=== PATIENT | male | born 1965 | race Two or more races ===

== ENCOUNTER 2020-03-23 07:49 | Emergency (ER) | payer BC, OTHER ==
[~2020-03-23] VITALS: Ht 185.4 cm; Wt 99.8 kg
[2020-03-23 07:55] VITALS: BP 145/80
[2020-03-23] MEDS ORDERED: methylPREDNISolone SOD SUCC 125 MG/2 ML VL IM ONE (09:00)
[2020-03-23] MEDS ORDERED: ACETAMINOPHEN 500 MG TAB PO ONE (09:00)
== END 2020-03-23 10:40 | disposition home or self-care (01) ==
LOC: ER 07:49
DX: S39.012A Strain of muscle, fascia and tendon of lower back, initial encounter (principal); X58.XXXA Exposure to other specified factors, initial encounter; Y93.89 Activity, other specified; Y92.89 Other specified places as the place of occurrence of the external cause; Y99.8 Other external cause status
CPT/HCPCS: 72100; 96372; 99283; J2930

== ENCOUNTER 2023-10-31 13:29 | Inpatient (IN) | payer BC, OTHER ==
[~2023-10-31] VITALS: Ht 182.9 cm; Wt 114.6 kg
[2023-10-31] MEDS: ASPirin 81 mg TAB PO ONE (14:00)
[2023-10-31] MEDS: MORPHINE SULFATE 4 MG/ML SYR/VIAL IV ONE (14:00)
[2023-10-31] MEDS: ONDANSETRON HCL 4 MG/2 ML VIAL IV ONE (14:00)
[2023-10-31 14:15] VITALS: PULSE 64
[2023-10-31 14:16] LABS: Basophils # (auto) 0 10 ^3/uL (0-0.2); Basophils % (auto) 0.3 % (0.0-2.0); Eosinophils # (auto) 0.1 10 ^3/uL (0-0.8); Eosinophils % (auto) 3.1 % (0.0-7.0); Hematocrit 38.7 % (41.0-53.0); Lymphocytes # (auto) 1.8 10 ^3/uL (0.4-5.4); Lymphocytes % (auto) 37.3 % (10.0-50.0); Mean Corpuscular Hemoglobin 29.1 pg (28.0-32.0); Mean Corpuscular Hgb Conc. 33.6 g/dL (32.0-36.0); Mean Corpuscular Volume 86.8 fL (80.0-100.0); Monocytes # (auto) 0.6 10 ^3/uL (0-1.3); Monocytes % (auto) 12.2 % (0.0-12.0); Neutrophils # (auto) 2.3 10 ^3/uL (1.6-8.6); Neutrophils % (auto) 47.1 % (37.0-80.0); Nucleated Red Blood Cells % 0.2 %; Platelet Count (auto) 209 10^3/uL (140-450); Red Blood Cells 4.46 10^6/uL (4.5-5.90); Red Cell Distribution Width 13.9 % (11.8-14.3); White Blood Cell 4.9 10^3/uL (4.4-10.8)
[2023-10-31 14:19] LABS: Alanine Aminotransferase 23 U/L (7-40); Albumin 4.6 g/dL (3.2-4.8); Alkaline Phosphatase 49 U/L (46-116); Anion Gap 8 (5-15); Aspartate Aminotransferase 14 U/L (13-40); BUN/Creatinine Ratio 12.6 (10.0-20.0); Blood Urea Nitrogen 13 mg/dL (9-23); Calcium 10.4 mg/dL (8.7-10.4); Carbon Dioxide 27 mmol/L (20-30); Chloride 105 mmol/L (98-107); Glucose 102 mg/dL (74-106); Magnesium 1.7 mg/dL (1.6-2.6); Potassium 4.3 mmol/L (3.5-5.1); Sodium 140 mmol/L (136-145)
[2023-10-31 14:20] LABS: Bilirubin, Total 0.4 mg/dL (0.2-1.0); Total Protein 7.3 g/dL (5.7-8.2)
[2023-10-31 14:32] LABS: INR 1.05 (0.9-1.15); Partial Thromboplastin Time 25.7 SEC (24.5-34.5); Prothrombin Time 11.1 sec (9.3-11.8)
[2023-10-31] MEDS ORDERED: ACETAMINOPHEN 325 MG TAB PO PRN (15:00)
[2023-10-31] MEDS ORDERED: NITROGLYCERIN 0.4 MG SL TAB SL PRN (15:00)
[2023-10-31] MEDS ORDERED: MORPHINE SULFATE INJ 2 MG/ml SYRG IV PRN (15:00)
[2023-10-31] MEDS ORDERED: DOCUSATE SOD 100 MG CAP PO PRN (15:00)
[2023-10-31] MEDS ORDERED: ONDANSETRON HCL 4 MG/2 ML VIAL IV PRN (15:00)
[2023-10-31 19:40] VITALS: PULSE 70; RESP 14; O2SAT 99
[2023-10-31] MEDS: SODIUM CHLOR 0.9% PF (SALINE LOCK) 10ML VIAL/SYR IV SCH (22:28)
[2023-10-31] MEDS: ATORVASTATIN 20 MG TAB PO SCH (22:30)
[2023-10-31] MEDS: NALOXONE HCL 1MG/ML 2ML SYRINGE IV ONE (22:49)
[2023-11-01] VITALS (8 sets, daily range): BP systolic 108–117; BP diastolic 67–73; PULSE 56–68; RESP 17–18; TEMP 97.5–98.1; O2SAT 96–100
[2023-11-01] MEDS ORDERED: GABA-1250 PO (04:58)
[2023-11-01] MEDS: MORPHINE SULFATE INJ 2 MG/ml SYRG IV PRN (05:23)
[2023-11-01 06:56] LABS: Basophils # (auto) 0 10 ^3/uL (0-0.2); Basophils % (auto) 0.4 % (0.0-2.0); Eosinophils # (auto) 0.1 10 ^3/uL (0-0.8); Eosinophils % (auto) 2.8 % (0.0-7.0); Hematocrit 38.5 % (41.0-53.0); Hemoglobin 13.1 g/dL (13.5-17.5); Lymphocytes # (auto) 1.5 10 ^3/uL (0.4-5.4); Lymphocytes % (auto) 33.9 % (10.0-50.0); Mean Corpuscular Hemoglobin 29.8 pg (28.0-32.0); Mean Corpuscular Volume 87.7 fL (80.0-100.0); Monocytes # (auto) 0.6 10 ^3/uL (0-1.3); Monocytes % (auto) 13.1 % (0.0-12.0); Neutrophils # (auto) 2.3 10 ^3/uL (1.6-8.6); Neutrophils % (auto) 49.8 % (37.0-80.0); Nucleated Red Blood Cells % 0.3 %; Platelet Count (auto) 206 10^3/uL (140-450); Red Cell Distribution Width 14.1 % (11.8-14.3); White Blood Cell 4.5 10^3/uL (4.4-10.8)
[2023-11-01 07:20] LABS: Alanine Aminotransferase 19 U/L (7-40); Albumin 4.1 g/dL (3.2-4.8); Alkaline Phosphatase 44 U/L (46-116); Anion Gap 5 (5-15); Aspartate Aminotransferase 13 U/L (13-40); BUN/Creatinine Ratio 13.3 (10.0-20.0); Bilirubin, Total 0.4 mg/dL (0.2-1.0); Blood Urea Nitrogen 14 mg/dL (9-23); Calcium 9.3 mg/dL (8.7-10.4); Carbon Dioxide 27 mmol/L (20-30); Chloride 108 mmol/L (98-107); Glucose 109 mg/dL (74-106); Potassium 4.2 mmol/L (3.5-5.1); Sodium 140 mmol/L (136-145); Total Protein 6.9 g/dL (5.7-8.2)
[2023-11-01] MEDS: HYDROcodone-ACET 5/325MG TAB PO PRN (10:02)
[2023-11-01] MEDS: ASPirin 81 mg TAB PO SCH (10:02)
[2023-11-01 15:05] LABS: Triglycerides 198 mg/dL (< 150)
[2023-11-01 15:06] LABS: LDL Cholesterol 191 mg/dL (< 100)
[2023-11-01 15:07] LABS: HDL Cholesterol 50 mg/dL (40-59)
[2023-11-01 15:08] LABS: Cholesterol 267 mg/dL (< 200)
[2023-11-01] MEDS: ATORVASTATIN 20 MG TAB PO SCH (21:52)
[2023-11-02] VITALS (11 sets, daily range): BP systolic 105–131; BP diastolic 59–97; PULSE 57–79; RESP 12–20; TEMP 97.8–98.1; O2SAT 94–99
[2023-11-02 06:56] LABS: Basophils # (auto) 0 10 ^3/uL (0-0.2); Basophils % (auto) 0.4 % (0.0-2.0); Eosinophils # (auto) 0.1 10 ^3/uL (0-0.8); Hematocrit 40.5 % (41.0-53.0); Hemoglobin 13.7 g/dL (13.5-17.5); Lymphocytes # (auto) 1.8 10 ^3/uL (0.4-5.4); Lymphocytes % (auto) 39.2 % (10.0-50.0); Mean Corpuscular Hemoglobin 29.5 pg (28.0-32.0); Mean Corpuscular Hgb Conc. 33.9 g/dL (32.0-36.0); Mean Corpuscular Volume 86.9 fL (80.0-100.0); Monocytes # (auto) 0.6 10 ^3/uL (0-1.3); Monocytes % (auto) 12.7 % (0.0-12.0); Neutrophils % (auto) 44.7 % (37.0-80.0); Nucleated Red Blood Cells % 0.1 %; Platelet Count (auto) 211 10^3/uL (140-450); Red Blood Cells 4.66 10^6/uL (4.5-5.90); Red Cell Distribution Width 13.4 % (11.8-14.3); White Blood Cell 4.5 10^3/uL (4.4-10.8)
[2023-11-02 06:57] LABS: Calcium 9.7 mg/dL (8.7-10.4); Chloride 106 mmol/L (98-107); Potassium 3.8 mmol/L (3.5-5.1); Sodium 137 mmol/L (136-145)
[2023-11-02 06:58] LABS: Anion Gap 6 (5-15); Carbon Dioxide 25 mmol/L (20-30)
[2023-11-02 07:04] LABS: BUN/Creatinine Ratio 12.4 (10.0-20.0); Blood Urea Nitrogen 15 mg/dL (9-23); Glucose 130 mg/dL (74-106)
[2023-11-02] MEDS: fentaNYL CITRATE 100 MCG/2 ML VL ONE (11:54)
[2023-11-02] MEDS: HEPARIN SODIUM (PORCINE) 5000 UNITS/ML 1ML VIAL ONE (11:54)
[2023-11-02] MEDS: ANGIOMAX 250 MG VIAL IV ONE (11:54)
[2023-11-02] MEDS: VERAPAMIL 2.5MG/ML INJ 2ML VIAL IV ONE (11:54)
[2023-11-02] MEDS: SODIUM CHL 0.9% 0 ML ONE (11:55)
[2023-11-02] MEDS: LIDOCAINE 2%HCL (LOCAL ANESTH.) INJ 20ML MDV ONE (11:55)
[2023-11-02] MEDS: MIDAZOLAM HCL 2MG/2ML 2ml VIAL (1mg/ml) ONE (11:55)
[2023-11-02] MEDS: SODIUM CHLORIDE 0.9% 1,000 ML IV SCH (18:21)
[2023-11-02] MEDS: METOPROLOL TARTRATE 25 MG TAB PO SCH (21:36)
[2023-11-03 01:00] VITALS: BP 110/62; PULSE 82; RESP 20; TEMP 98; O2SAT 96
[2023-11-03 05:00] VITALS: BP 122/64; PULSE 60; RESP 22; TEMP 97.8; O2SAT 100
[2023-11-03 06:57] LABS: Anion Gap 5 (5-15); Basophils # (auto) 0 10 ^3/uL (0-0.2); Basophils % (auto) 0.3 % (0.0-2.0); Carbon Dioxide 28 mmol/L (20-30); Chloride 107 mmol/L (98-107); Eosinophils # (auto) 0.1 10 ^3/uL (0-0.8); Eosinophils % (auto) 2.6 % (0.0-7.0); Hematocrit 41.1 % (41.0-53.0); Hemoglobin 13.8 g/dL (13.5-17.5); Lymphocytes # (auto) 1.7 10 ^3/uL (0.4-5.4); Lymphocytes % (auto) 33.9 % (10.0-50.0); Mean Corpuscular Hemoglobin 29.2 pg (28.0-32.0); Mean Corpuscular Hgb Conc. 33.4 g/dL (32.0-36.0); Mean Corpuscular Volume 87.2 fL (80.0-100.0); Monocytes # (auto) 0.7 10 ^3/uL (0-1.3); Monocytes % (auto) 14.3 % (0.0-12.0); Neutrophils # (auto) 2.5 10 ^3/uL (1.6-8.6); Neutrophils % (auto) 48.9 % (37.0-80.0); Platelet Count (auto) 222 10^3/uL (140-450); Potassium 4.1 mmol/L (3.5-5.1); Red Blood Cells 4.72 10^6/uL (4.5-5.90); Red Cell Distribution Width 13.9 % (11.8-14.3); Sodium 140 mmol/L (136-145); White Blood Cell 5.1 10^3/uL (4.4-10.8)
[2023-11-03 06:58] LABS: Calcium 9.8 mg/dL (8.7-10.4)
[2023-11-03 07:03] LABS: BUN/Creatinine Ratio 12.5 (10.0-20.0); Blood Urea Nitrogen 14 mg/dL (9-23); Glucose 101 mg/dL (74-106)
[2023-11-03 08:00] VITALS: PULSE 63; RESP 18
[2023-11-03 09:01] VITALS: BP 119/76; PULSE 67; RESP 18; TEMP 97.9; O2SAT 99
[2023-11-03 13:44] VITALS: BP 124/67; PULSE 67; RESP 18; TEMP 98.2; O2SAT 95
== END 2023-11-03 15:13 | disposition home or self-care (01) | DRG 287 ==
LOC: ER 13:29 → TELE 15:01 → TELE-WESTW 11-01 03:22
PROVIDERS: ADMIT Nurse Practitioner Family; ATTEND Family Medicine
PROC: 4A023N7 Measurement of Cardiac Sampling and Pressure, Left Heart, Percutaneous Approach (ICD-10-PCS; principal; 2023-11-02)
PROC: B211YZZ Fluoroscopy of Multiple Coronary Arteries using Other Contrast (ICD-10-PCS; 2023-11-02)
DX: I25.119 Atherosclerotic heart disease of native coronary artery with unspecified angina pectoris (principal); I24.9 Acute ischemic heart disease, unspecified; Q24.5 Malformation of coronary vessels; R73.03 Prediabetes; E78.5 Hyperlipidemia, unspecified; E66.9 Obesity, unspecified; G89.29 Other chronic pain; Z82.3 Family history of stroke; Z82.49 Family history of ischemic heart disease and other diseases of the circulatory system; Z68.34 Body mass index [BMI] 34.0-34.9, adult
CPT/HCPCS: 36415; 71045; 80048; 80053; 80061; 83036; 83735; 83880; 84443; 84484; 85025; 85610; 85730; 93005; 93306; 99152; G0378; J2250; J2405

== ENCOUNTER 2024-08-07 08:53 | Outpatient (CLI) | payer BC ==
[~2024-08-07] VITALS: Ht 182.9 cm; Wt 108.9 kg
[~2024-08-07 08:53] MED LIST: GABA-1250 PO
[2024-08-07] MEDS: REGADENOSON 0.4 MG/5 ML SYRG IV ONE ×2 (10:40→10:49)
--- NOTE | 2024-08-13 11:54 | DVHSR ---
APPROVED REPORT Exam: Nuclear Stress Test Indication: chest pain BMI: 0 Medical History Medical History: HTN, Dyslipidemia, myocardial bridge, obesity Stress Test Details Stress Test: Pharmacologic stress testing performed using 0.4 mg of regadenoson per 5 mL given IV ov er 10 seconds. HR Resting HR: 68 bpmMax Heart Rate (APMHR): 163.688690 bpm Max HR Achieved: 96 bpmTarget HR (85% APMHR): 138.030309 bpm % of APMHR: 58.90 Recovery HR: 81 bpm BP Resting BP: 122/66 mmHg Recovery BP: 129/81 mmHg ECG Resting ECG: Sinus Rhythm Clinical Reason for Termination: Completed protocol Stress ECG Conclusion lvef 66% normal perfusion scan baseline ecg has subtile ST elevation in inferior leads at rest, no change on stress portion no ischemia noted NM EXAM: Myocardial Perfusion REST/STRESS Imaging Protocol: Rest Tc-99m/Stress Tc-99m 1 day Resting Data Rest SPECT myocardial perfusion imaging was performed in supine position 45 minutes following the int ravenous injection of 12.5 mCi of Tc-99m Sestamibi. Time of rest injection: 0930 Time of rest imagin Administration Route: IV Administration Site: Left AC Pharmacologic Stress Pharmacologic stress test was performed by injecting Regadenoson 0.4 mg IV push followed by the intra venous injection of 30.3 mCi of Tc-99m Sestamibi. Time of stress injection: 1030 Time of stress imagin Administration Route: IV Administration Site: Left AC Gated Stress SPECT was performed 75 minutes after stress injection. The images were gated to evaluate regional wall motion and calculate left ventricular ejection fracti on. Nuclear Conclusion Nuclear Findings: negative for ischemia lvef 66% normal perfusion scan baseline ecg has subtile ST elevation in inferior leads at rest, no change on stress portion no ischemia noted
== END 2024-08-07 17:00 | disposition home or self-care (01) ==
LOC: XYW 08:53
PROVIDERS: ATTEND Internal Medicine
DX: R07.9 Chest pain, unspecified (principal); I10 Essential (primary) hypertension; E78.5 Hyperlipidemia, unspecified; E66.9 Obesity, unspecified; Z68.33 Body mass index [BMI] 33.0-33.9, adult
CPT/HCPCS: 78452; 93017; A9500; J2785